=== PATIENT | male | born 1940 | race Caucasian/White ===

== ENCOUNTER 2018-11-25 10:35 | Outpatient (REF) | payer MEDICARE, BC, SELFPAY ==
[2018-11-25 22:23] LABS: ALT 26 U/L (12-78); AST 17 U/L (15-37); Albumin 4.4 g/dL (3.4-5.0); Alkaline Phosphatase 80 U/L (46-116); Anion Gap 14.7 mmol/L (3-11); BUN 13 mg/dL (7-18); CO2 26.3 mmol/L (21.0-32.0); CREATININE 1.23 mg/dL (0.70-1.30); Calcium 9.1 mg/dL (8.5-10.1); Chloride 102 mmol/L (98-107); Estimated GFR 57.06 (mL/min/1.73m2); Glucose 108 mg/dL (70-100); Potassium 3.5 mmol/L (3.5-5.1); Sodium 143 mmol/L (136-145); Total Protein 7.8 g/dL (6.4-8.2)
[2018-11-28 10:07] LABS: PSA, Screening 3.1 ng/ml (0-6.5)
== END 2018-11-25 10:55 ==
LOC: NCHCN 10:35
PROVIDERS: PCP Family Medicine; Visit Provider Family Medicine
DX: I10 Essential (primary) hypertension (principal); E78.5 Hyperlipidemia, unspecified; Z12.5 Encounter for screening for malignant neoplasm of prostate
CPT/HCPCS: 80053; 84153

== ENCOUNTER 2019-11-28 11:03 | Outpatient (REF) | payer MEDICARE, BC, SELFPAY ==
[2019-11-28 22:12] LABS: ALT 23 U/L (16-63); AST 16 U/L (15-37); Albumin 4.3 g/dL (3.4-5.0); Alkaline Phosphatase 73 U/L (46-116); Anion Gap 10.7 mmol/L (3-11); BUN 11 mg/dL (7-18); Bilirubin, Total 1.2 mg/dL (0.2-1.0); CO2 27.3 mmol/L (21.0-32.0); CREATININE 1.11 mg/dL (0.70-1.30); Calcium 8.7 mg/dL (8.5-10.1); Calculated LDL 82 mg/dL (<100); Chloride 105 mmol/L (98-107); Cholesterol 154 mg/dL (<200); Glucose 103 mg/dL (74-106); HDL Cholesterol 53 mg/dL (40-60); Potassium 3.5 mmol/L (3.5-5.1); Sodium 143 mmol/L (136-145); Total Protein 7.4 g/dL (6.4-8.2); Triglyceride 96 mg/dL (<150)
[2019-11-30 12:10] LABS: PSA, Screening 3.6 ng/mL (0.0-6.5)
== END 2019-11-28 11:23 ==
LOC: NCHCN 11:03
PROVIDERS: PCP Family Medicine; Visit Provider Family Medicine
DX: I10 Essential (primary) hypertension (principal); E78.5 Hyperlipidemia, unspecified; Z12.5 Encounter for screening for malignant neoplasm of prostate
CPT/HCPCS: 80053; 80061; 84153

== ENCOUNTER → 2020-01-05 08:49 | Outpatient (BNVA) | payer MEDICARE, BC, SELFPAY | PROVIDERS: PCP Family Medicine; Referring Provider Family Medicine; Visit Provider Surgery | DX: Z12.11 Encounter for screening for malignant neoplasm of colon (principal); Z86.010 Personal history of colon polyps ==

== ENCOUNTER 2020-03-28 07:21 | Outpatient (CLI) | payer MEDICARE, BC, SELFPAY ==
[2020-03-29 19:45] LABS: COVID-19 RT-PCR UVMMC Result Negative (Negative)
== END 2020-03-28 07:41 ==
PROVIDERS: PCP Family Medicine; Visit Provider Surgery
DX: Z11.59 Encounter for screening for other viral diseases (principal); Z01.818 Encounter for other preprocedural examination
CPT/HCPCS: U0003

== ENCOUNTER 2020-04-01 10:53 | Day surgery (SDC) | payer MEDICARE, BC, SELFPAY ==
--- NOTE | 2020-04-01 06:17 | HPE_ITS ---
Date of service: 04/01/20 Time of Service: 06:18 Assessment and Plan Assessment and plan (1) Hx of adenomatous colonic polyps: Status: Acute Assessment and plan: A\\ Mr. Summers is a healthy 79 year old male with a history of sessile serrated adenoma in 2017 who is here to discuss another colonoscopy. He is healthy and still very active. P\\ Colonoscopy under sedation Risks, benefits and complications have been reviewed. Complications include but are not limited to bleeding, pain, perforation, missed small lesion/polyp, sore throat, aspiration and adverse reaction to the medications. Questions were entertained and answered to their satisfaction and they wished to proceed. No guarantees were given or implied. (2) COVID-19 virus not detected: Status: Acute History of Present Illness Narrative: Mr. Summers is back to see me today for a follow up Colonoscopy. He was noted to have a sessile serrated adenoma in 2017. He is still active and healthy. He denies any melena, hematochezia, abdominal pain, changes in bowel habits, unintentional weight loss, family history of colon cancer. He denies chest pain or shortness of breath. HIs Colonoscopy was postponed due to COVID- 19. He has had no changes in his health since he was last seen in the office in December. Review of Systems Constitutional Constitutional: Denies fever(s), Denies headache(s), Denies poor appetite and Denies weight loss Eyes Eyes: Denies change in vision ENT Ears, Nose, Mouth, and Throat: Denies change in voice, Denies headache(s) and Denies hoarseness Cardiovascular Cardiovascular: Denies chest pain, Denies irregular heart rhythm, Denies palpitations and Denies dyspnea Respiratory Respiratory: Denies cough and Denies dyspnea Gastrointestinal Gastrointestinal: Reports as per HPI and Reports system reviewed and no additional complaints, except as documented Neurologic Neurologic: Denies headache(s) Endocrine Endocrine: Denies palpitations [facility] Medical History (Updated 04/01/20 @ 11:39 by Reshma Doan) Colon polyps (Acute) HTN (hypertension) Hyperlipidemia Intermittent asthma (Acute) Leg fracture, left (Acute) pt. reports he has a plate in his leg Low vision (Acute) Macular degeneration of right eye (Acute) pt. states it is not degeneration, but macular something Surgical History Colonoscopy - IV Sedation (11/16/16) sessile serrated adenoma Social History Smoking/Tobacco Use Status: Never Alcohol Intake: current Alcohol Intake frequency: holidays/special occasions o nly Alcohol type: wine Drug use: Never Substance use type: does not use Details: alcohol: greater than a year Do you feel safe at home: Yes Do you feel safe in your relationship?: Yes Meds Home Medications and Allergies Home Medications Medication Instructions Recorded Confirmed Type amlodipine [Norvasc] 15 mg PO HS tab-cap 11/06/16 04/01/20 History aspirin 81 mg PO DAILY tab-cap 11/06/16 04/01/20 History hydrochlorothiazide 12.5 mg PO DAILY tab-cap 11/06/16 04/01/20 History simvastatin 10 mg PO DAILY tab-cap 11/06/16 04/01/20 History potassium chloride 10 meq PO DAILY 11/16/16 04/01/20 History albuterol sulfate 90 mcg/actuation 2 puff IH Q6H PRN 12/26/19 04/01/20 History aerosol inhaler Allergies Allergy/AdvReac Type Severity Reaction Status Date / Time No Known Allergies Allergy Unverified 04/01/20 11:34 Exam Const General: cooperative, comfortable and no acute distress Orientation: alert and oriented x3 HENMT Head: normocephalic and atraumatic Resp Effort & Inspection: normal respiratory effort Auscultation: clear to auscultation bilaterally Cardio Rate: regular rate Rhythm: regular rhythm Heart Sounds: no gallops, no murmurs and no rubs
--- NOTE | 2020-04-01 06:20 | COLE_ITS ---
Date of service: 04/01/20 Time of Service: 13:30 Colonoscopy Report Date of procedure: 04/01/20 Pre-op diagnosis general: Hx of colon polyps Post-op diagnosis procedure note: other (mild diverticulosis, colorectal polyps, internal hemorrhoids) Procedure: Colonoscopy with polypectomy Surgeon: Tasha Mckinley Anesthesia proc note operative: other (General/ ASA 3/Beata Gallardo, TRAINING COORDINATOR) Estimated blood loss (mL): 3 Pathology: other (rectal polyp, cecal polyp, descending polyp, sigmoid polyp, rectal bx) Complications: None Disposition: same day Indications: Mr. Summers is a healthy 79 year old male with a history of sessile serrated adenoma in 2017 who is here to discuss another colonoscopy. He is healthy and still very active. Risks, benefits and complications have been reviewed. Complications include but are not limited to bleeding, pain, perforation, missed small lesion/polyp, sore throat, aspiration and adverse reaction to the medications. Questions were entertained and answered to their satisfaction and they wished to proceed. No guarantees were given or implied. Prep: Miralax/Dulcolax Procedure Start Time: 12:46 Procedure End Time: 13:20 Retraction Time: 25 minutes Findings: 4 polyps, internal hemorrhoids, mild diverticulosis Procedure Description: After informed consent was obtained the patient was taken to the procedure room and placed in a left decubitous position. Monitors were applied and a time out was done. The patients name, date of , procedure, allergies to medications and metal in their body was reviewed. The patient was then sedated. Once sedated and comfortable a rectal exam was done. External exam was normal. Internal exam revealed a normal sphincter tone and palpable hemorrhoids. The prostate felt smooth. The scope was then introduced and retro-flexed. Grade 2 Internal hemorrhoids were identified. The 2 larger hemorrhoids looked irritated. The scope was then advanced to the cecum without difficulty. The Ileocecal valve and appendiceal orifice were identified. The prep was adequate. The scope was then slowly retracted over 25 minutes back into the rectum. Polyps were removed with cold forceps in the cecum, descending colon, sigmoid colon and rectum. The irritated hemorrhoid was biopsied. The scope was removed and the patient was woken up and taken back to Same day surgery in stable condition. The patient tolerated the procedure well and there were no immediate complications. Follow up: The patient should follow up in 3-5 years unless they develop changes in bowel habits or other new gastrointestinal complaints.
--- NOTE | 2020-04-01 06:21 | W.PM.DSUDISC ---
Discharge Plan Disposition Patient Disposition: HOME Condition: Good Discharge Details Reason For Visit: hx of polyps Attending Provider: Tasha Mckinley Primary Care Provider: Micki Martini V Home Meds and New Rx's Prescriptions: Continued simvastatin 10 MG tablet 10 mg PO DAILY RF: 0 amlodipine [Norvasc] 10 MG tablet 15 mg PO HS RF: 0 aspirin 81 MG tablet,chewable 81 mg PO DAILY RF: 0 hydrochlorothiazide 25 MG tablet 12.5 mg PO DAILY RF: 0 albuterol sulfate [ProAir HFA] 90 mcg/actuation HFA aerosol inhaler 2 puff IH Q6H PRNRF: 0 potassium chloride 10 MEQ capsule, extended release 10 meq PO DAILY RF: 0 Discontinued bisacodyl [Dulcolax (bisacodyl)] 5 mg tablet,delayed release (DR/EC) 5 mg PO ONCE Qty: 4 RF: 0 polyethylene glycol 3350 17 gram powder in packet 255 g PO DAILY Qty: 15 RF: 0 Discharge Instructions Instructions: Diverticulosis (DC), Colorectal Polyps (GEN), Hemorrhoids (GEN) Additional Instructions: Findings: polyps mild diverticulosis Grade 2 internal hemorrhoids Follow up: 3-5 years Please call if you develop: fevers >101.5 Nausea or Vomiting Abdominal pain that is not transient DAY SURGERY UNIT POST ENDOSCOPY INSTRUCTIONS 1. Because there will be medication in your system for the next 24 hours, you may feel a little sleepy. Your coordination will be affected. Therefore: a. Do not drive or operate dangerous equipment for 24 hours. b. Do not drink alcohol beverages for 24 hours (not even beer). c. Plan to go home and rest for the day. 2. Generally there are no restrictions on your activity after a day or so has gone by, but you may feel a bit fatigued for a few days. 3 After you arrive home you may have a light meal and return to a normal diet as you can tolerate it without feeling sick to your stomach. 4. After surgery, you may feel pain or discomfort. This should be only transient, but if it persists please contact your doctor. 5. If there are any questions regarding the findings of your procedure, please feel free to contact your doctor. 6. If you are unable to contact your doctor with a problem, contact the hospital at [phone]. 7. Continue all your regular medications unless directed otherwise. I understand the above instructions and have no questions. Signature of Patient or Responsible Adult Escort Date/Time Name of Responsible Adult Escort Signature of Nurse Date/Time Activity:: Activity as Tolerated Diet:: High Fiber Diet Discharge Orders Discharge Orders: Discharge Order (Routine); Ordered 04/01/20 Ordered By: Tasha Mckinley DS: Diagnosis Discharge Diagnosis (1) Hx of adenomatous colonic polyps: Status: Acute
[2020-04-01 11:40] VITALS: BP 141/77; PULSE 75; RESP 16; TEMP 36.2; O2SAT 96
[2020-04-01] MEDS: Lactated Ringers 1,000 ML 80 ML IV (11:55)
--- NOTE | 2020-04-01 12:50 | BOWEL_PTH ---
PATIENT: Julio Summers LOC: [facility] U#:[id number] AGE/SX: 79/M ROOM: RE04/01/[address]: Tasha Mckinley MD : 1940 BED: DIS: 04/01/2020 SPEC #: [id number] RECD: 04/01/20 14:44 STATUS: SHAKEEL REQ #: [id number] BHANU: 04/01/20 12:[address]: Tasha Mckinley DEPT: Surgical Specimen RECD BY: Fabby Pickard ENTERED: 04/01/20 14:45 SP TYPE: Bowel OTHR DR: Micki Martini V Tissues: 1 - BIOPSY BOWEL 2 - BIOPSY BOWEL 3 - BIOPSY BOWEL 4 - BIOPSY BOWEL 5 - BIOPSY BOWEL Procedures: GROSS AND MICRO LEVEL 4 Comments: [id number]
[2020-04-01 13:55] VITALS: BP 140/81; PULSE 60; RESP 16; TEMP 36; O2SAT 99
== END 2020-04-01 14:35 | disposition home or self-care (01) ==
LOC: SUR 10:54
PROVIDERS: PCP Family Medicine; Visit Provider Surgery
PROC: 0DJD8ZZ Inspection of Lower Intestinal Tract, Via Natural or Artificial Opening Endoscopic (ICD-10-PCS; CPT 45378; principal; 2020-04-01 10:45)
DX: Z12.11 Encounter for screening for malignant neoplasm of colon (principal); Z86.010 Personal history of colon polyps; K62.1 Rectal polyp; K63.5 Polyp of colon; K57.30 Diverticulosis of large intestine without perforation or abscess without bleeding; K64.1 Second degree hemorrhoids
CPT/HCPCS: 45380; 88305; NC; J2001

== ENCOUNTER 2021-01-09 16:14 | Outpatient (REF) | payer MEDICARE, BC, SELFPAY ==
[2021-01-09 16:36] LABS: ALT 27 U/L (16-63); AST 17 U/L (15-37); Albumin 4.1 g/dL (3.4-5.0); Alkaline Phosphatase 79 U/L (46-116); Anion Gap 10.1 mmol/L (3-11); BUN 15 mg/dL (7-18); CO2 27.9 mmol/L (21.0-32.0); CREATININE 1.1 mg/dL (0.70-1.30); Calcium 9.1 mg/dL (8.5-10.1); Chloride 102 mmol/L (98-107); Glucose 106 mg/dL (74-106); Potassium 3.7 mmol/L (3.5-5.1); Sodium 140 mmol/L (136-145); Total Protein 7.6 g/dL (6.4-8.2)
== END 2021-01-09 16:15 | disposition home or self-care (01) ==
LOC: NCHCN 16:14
PROVIDERS: PCP Family Medicine; Visit Provider Family Medicine
DX: I10 Essential (primary) hypertension (principal)
CPT/HCPCS: 80053

== ENCOUNTER 2022-01-13 18:29 | Outpatient (REF) | payer MEDICARE, SELFPAY ==
[2022-01-13 13:00] LABS: ALT 28 U/L (16-63); AST 20 U/L (15-37); Albumin 4.2 g/dL (3.4-5.0); Alkaline Phosphatase 79 U/L (46-116); Anion Gap 10.5 mmol/L (3-11); BUN 15 mg/dL (7-18); Bilirubin, Total 1.2 mg/dL (0.2-1.0); CO2 26.5 mmol/L (21.0-32.0); CREATININE 1.2 mg/dL (0.70-1.30); Calcium 8.7 mg/dL (8.5-10.1); Chloride 104 mmol/L (98-107); Estimated GFR 58.11 (mL/min/1.73m2); Glucose 107 mg/dL (74-106); Potassium 3.4 mmol/L (3.5-5.1); Sodium 141 mmol/L (136-145); Total Protein 7.5 g/dL (6.4-8.2)
[2022-01-13 23:34] LABS: PSA, Screening 5.2 ng/mL (0.0-6.5)
== END 2022-01-13 18:30 | disposition home or self-care (01) ==
LOC: NCHCN 18:29
PROVIDERS: PCP Family Medicine; Visit Provider Family Medicine
DX: Z00.00 Encounter for general adult medical examination without abnormal findings (principal); I10 Essential (primary) hypertension; E78.5 Hyperlipidemia, unspecified; Z12.5 Encounter for screening for malignant neoplasm of prostate
CPT/HCPCS: 80053; 84153

== ENCOUNTER 2023-01-14 15:58 | Outpatient (REF) | payer MEDICARE, SELFPAY ==
[2023-01-14 16:04] LABS: ALT 22 U/L (16-63); AST 14 U/L (15-37); Albumin 4.3 g/dL (3.4-5.0); Alkaline Phosphatase 84 U/L (46-116); Anion Gap 9.5 mmol/L (3-11); BUN 11 mg/dL (7-18); Bilirubin, Total 1.5 mg/dL (0.2-1.0); CO2 28.5 mmol/L (21.0-32.0); CREATININE 1.3 mg/dL (0.70-1.30); Calcium 9.3 mg/dL (8.5-10.1); Calculated LDL 75 mg/dL (<100); Chloride 103 mmol/L (98-107); Cholesterol 168 mg/dL (<200); Estimated GFR 54.85 (mL/min/1.73m2); Glucose 108 mg/dL (74-106); HDL Cholesterol 68 mg/dL (40-60); Potassium 3.5 mmol/L (3.5-5.1); Sodium 141 mmol/L (136-145); Total Protein 7.9 g/dL (6.4-8.2); Triglyceride 125 mg/dL (<150)
[2023-01-15 20:38] LABS: PSA, Screening 6.5 ng/mL (<=6.5)
== END 2023-01-14 15:59 | disposition home or self-care (01) ==
LOC: NCHCN 15:58
PROVIDERS: PCP Family Medicine; Visit Provider Family Medicine
DX: I10 Essential (primary) hypertension; E78.5 Hyperlipidemia, unspecified; Z12.5 Encounter for screening for malignant neoplasm of prostate
CPT/HCPCS: 80053; 80061; 84153

== ENCOUNTER 2023-06-21 13:24 | Outpatient (REF) | payer MEDICARE, SELFPAY | END 2023-06-21 13:25 | disposition home or self-care (01) | LOC: NCHCN 13:24 | PROVIDERS: PCP Family Medicine; Visit Provider Family Medicine | DX: N39.0 Urinary tract infection, site not specified (principal); B96.20 Unspecified Escherichia coli [E. coli] as the cause of diseases classified elsewhere | CPT/HCPCS: 87077; 87086; 87186 ==

== ENCOUNTER 2023-06-28 16:34 | Outpatient (REF) | payer MEDICARE, SELFPAY ==
[2023-06-28 16:45] LABS: Anion Gap 11.3 mmol/L (3-11); BUN 12 mg/dL (7-18); CO2 24.7 mmol/L (21.0-32.0); CREATININE 1.1 mg/dL (0.70-1.30); Calcium 9.1 mg/dL (8.5-10.1); Chloride 99 mmol/L (98-107); Estimated GFR 67.02 (mL/min/1.73m2); Glucose 118 mg/dL (74-106); Potassium 3.6 mmol/L (3.5-5.1); Sodium 135 mmol/L (136-145)
== END 2023-06-28 16:35 | disposition home or self-care (01) ==
LOC: NCHCN 16:34
PROVIDERS: PCP Family Medicine; Visit Provider Family Medicine
DX: R31.9 Hematuria, unspecified (principal); N39.0 Urinary tract infection, site not specified; R35.0 Frequency of micturition; E87.6 Hypokalemia
CPT/HCPCS: 80048; 87086

== ENCOUNTER → 2023-07-07 09:05 | Outpatient (BNVA) | payer MEDICARE, SELFPAY | PROVIDERS: PCP Family Medicine; Referring Provider Family Medicine; Visit Provider Surgery | DX: K62.89 Other specified diseases of anus and rectum (principal) | CPT/HCPCS: 99203 ==

== ENCOUNTER 2023-07-12 13:46 | Outpatient (REF) | payer MEDICARE, SELFPAY ==
[2023-07-12 16:08] LABS: Anion Gap 12.3 mmol/L (3-11); BUN 11 mg/dL (7-18); CO2 24.7 mmol/L (21.0-32.0); CREATININE 1.2 mg/dL (0.70-1.30); Calcium 8.8 mg/dL (8.5-10.1); Chloride 103 mmol/L (98-107); Estimated GFR 60.38 (mL/min/1.73m2); Glucose 105 mg/dL (74-106); Potassium 3.4 mmol/L (3.5-5.1); Sodium 140 mmol/L (136-145)
[2023-07-12 23:03] LABS: PSA, Screening 11.4 ng/mL (<=6.5)
== END 2023-07-12 13:47 | disposition home or self-care (01) ==
LOC: NCHCN 13:46
PROVIDERS: PCP Family Medicine; Visit Provider Nurse Practitioner Family
DX: I10 Essential (primary) hypertension (principal); R97.20 Elevated prostate specific antigen [PSA]; Z12.5 Encounter for screening for malignant neoplasm of prostate
CPT/HCPCS: 80048; 84153

== ENCOUNTER 2023-07-22 06:50 | Day surgery (SDC) | payer MEDICARE, SELFPAY ==
--- NOTE | 2023-07-21 19:01 | PDOC.DSDIS_ITS ---
Date of service: 07/22/23 Time of Service: 08:41 Discharge Plan Disposition Patient Disposition: Home Condition: Good Discharge Details Reason For Visit: Rectal mass Attending Provider: Miguel Gutiérrez Primary Care Provider: Micki Martini V Home Meds and New Rx's Prescriptions: New tramadol 50 mg tablet 50 mg PO Q8H PRNQty: 15 0RF Rx Instructions: Take 1 tablet by mouth up to every 8 hours if needed for severe pain. Continued amlodipine [Norvasc] 10 MG tablet 15 mg PO HS hydrochlorothiazide 25 MG tablet 12.5 mg PO DAILY albuterol sulfate [ProAir HFA] 90 mcg/actuation HFA aerosol inhaler 2 puff IH Q6H PRN simvastatin 10 mg tablet 20 mg PO DAILY potassium chloride 10 MEQ capsule, extended release 10 meq PO DAILY Discontinued polyethylene glycol 3350 17 gram/dose powder 238 g PO ONCE Qty: 238 0RF Rx Instructions: take per colonoscopy instructions bisacodyl [Dulcolax (bisacodyl)] 5 mg tablet,delayed release (DR/EC) 5 mg PO ONCE Qty: 4 0RF Rx Instructions: take per colonoscopy instructions Discharge Instructions Instructions: Rubber Band Ligation (DC), Rubber Band Ligation (GEN) Additional Instructions: Julio, your colonoscopy today went just fine. He did have 2 large internal hemorrhoids. The tissue overlying them was a little bit irritated. And because of your previous biopsies, I felt the safest thing to do is repeat biopsies today. This went very smoothly. I also placed bands on the 2 large hemorrhoids. You probably remember, in the office, we talked a little bit about the nature of hemorrhoids. Essentially, they are large veins. The bands that I put around will cause the blood flow to stop moving into the hemorrhoids. This will ultimately cause them to form blood clots and to fall off. Although hemorrhoid banding is generally regarded as relatively comfortable, I did take the liberty of prescribing a pain medication in the case that you need it. Tylenol and ibuprofen can also be very helpful for discomfort. Topical treatments with things like preparation might also be useful in the days to come. You may also find that performing sitz bath's will help with any discom fort you have around your anus. Sitz bath's can be purchased at pharmacies, or performed at home using a simple shallow bathtub. I generally recommend the patient's had a few tablespoons of Epsom salts, or baking soda to the warm water. Then, you just soak your backside in the liquid. I usually tell patients to do this at least twice a day, and may be after each bowel movement if needed for discomfort. I have also made a follow-up appointment in my office on August 04 at 9 AM. If you need anything at all in the meantime, please do not hesitate to call. 1. If tolerated, consume a soft, low fiber diet for 1-2 days. 2. Do not drive, drink alcohol, operate machinery, make critical decisions, or do activities that require coordination or balance for 24 hours. 3. Because air was put into your colon during the procedure, expelling air from your rectum (passing gas or farting) is normal. 4. You may not have a bowel movement for 1-3 days because of the colonoscopy prep. This is normal. 5. Go directly to the emergency room if you notice any of the following: Develop chills (warm to touch), or if you have a thermometer and your temperature is above 101 Difficulty breathing or difficultly swallowing Persistent vomiting Severe abdominal pain, other than gas cramps Severe chest pain Black, tarry stools Any bleeding ? exceeding one tablespoon 6. Call your physician if the site where your intravenous was started becomes red, swollen, painful, and warm to touch. 7. Your physician has reviewed your pre-procedure medications. Please continue to take those medications as previously ordered. You will be given specific information/education regarding any changes to your medications before leaving. Stand Alone Forms: Anesthesia Discharge Inst., Kacie Kumar (DSU) Activity:: Activity as Tolerated Diet:: As Tolerated Discharge Orders Discharge Orders: Discharge Order (Routine); Ordered 07/21/23 Ordered By: Miguel Gutiérrez DS: Diagnosis Discharge Diagnosis (1) Rectal mass: Status: Acute
--- NOTE | 2023-07-21 19:03 | COLE_ITS ---
Date of service: 07/22/23 Time of Service: 08:54 Colonoscopy Report Date of procedure: 07/22/23 Pre-op diagnosis general: Rectal mass Post-op diagnosis procedure note: other (Internal hemorrhoids) Procedure: Colonoscopy with hemorrhoid banding Surgeon: Miguel Gutiérrez Anesthesia Type: General:No Airway Estimated blood loss (mL): 3 Pathology: other (Biopsies of hemorrhoid) Complications: None Disposition: same day Indications: Julio is an 82 year old man who experiences intermittent rectal prolapse. Prep: Miralax/Dulcolax Procedure Start Time: 08:19 Procedure End Time: 08:34 Retraction Time: 11 Findings: Grade 3 internal hemorrhoids Procedure Description: After the induction of monitored anesthetic care, and with the patient in left lateral decubitus position, I began by performing an external anorectal exam.? Perineum and skin were normal, as was the anal verge.? There was no evidence of external hemorrhoids.? Next, I performed a digital rectal exam.? This felt normal.? Next, I advanced a colonoscope into the rectal vault.? I performed retroflexion.? There were grade 3 internal hemorrhoids. The mucosa overlying the largest was a little bit friable. I did perform cold forceps biopsies here..? Using insufflation, I then advanced the colonoscope beyond the rectal folds and into the sigmoid colon before advancing towards the cecum.? The quality of the prep was excellent.? The scope was noted to be in the cecum by identification of the ileocecal valve and appendiceal orifice.? I then began withdrawing the colonoscope using repeated irrigation as necessary for full evaluation of the colonic mucosa. ?Once the scope was withdrawn to the level of the rectum, great care was taken to examine portions of the rectal folds.? I did not see any signs of tumors or polyps anywhere within the large intestine. I wi thdrew the colonoscope, and next using a fiberoptic lit anoscope, I carefully examined the anal column and distal rectum. There were 2 large hemorrhoids. One was in the left lateral column. The other was in the right posterior column. I performed rubber band ligation of these hemorrhoids.
[2023-07-22 07:12] VITALS: BP 131/71; PULSE 73; RESP 16; TEMP 36.5; O2SAT 97
[2023-07-22] MEDS: Lactated Ringers 1,000 ML 80 ML IV (07:31)
--- NOTE | 2023-07-22 07:58 | W.ANESPRE ---
General Info Date of Service Date Performed: 07/22/23 Height: 5 ft 5 in Weight: 65.9 kg Body Mass Index (BMI): 24.1 Surgical Procedure: Operation Date: 07/22/23 08:20 Proposed Procedure Side Surgeon scott Gutiérrez MD Meds Allergies and Home Medications Allergies Allergy/AdvReac Type Severity Reaction Status Date / Time No Known Allergies Allergy Verified 07/22/23 07:11 Home Medication Medication Instructions Recorded amlodipine 10 mg tablet (Norvasc) 15 mg PO HS 11/06/16 hydrochlorothiazide 25 mg tablet 12.5 mg PO DAILY 11/06/16 potassium chloride 10 mEq 10 meq PO DAILY 11/16/16 capsule,extended release albuterol sulfate 90 mcg/actuation 2 puff inhalation Q6H PRN 12/26/19 aerosol inhaler (ProAir HFA) simvastatin 10 mg tablet 20 mg PO DAILY 06/29/23 Current Visit Medications: Current Medications Generic Name Dose Route Start Last Admin Trade Name Freq PRN Reason Stop Dose Admin Hyoscyamine Sulfate 0.125 mg 07/21/23 19:04 Hyoscyamine 0.125 Mg Sl/Oral/Chew SL 08/20/23 19:03 DIRECTED PRN Ringer's Solution 1,000 mls @ 80 mls/hr 07/22/23 06:00 07/22/23 07:31 IV 08/20/23 23:59 80 mls/hr INFUSION JAUN Administration IV Miscellaneous Supplies 1 each 07/22/23 06:00 Iv Access IV 08/20/23 23:59 DIRECTED JAUN Ondansetron HCl 4 mg 07/21/23 19:04 Ondansetron 4 Mg/2 Ml Vial IVP 08/20/23 19:03 Q4H PRN PRN Nausea / Vomiting Sodium Chloride 0 ml 07/22/23 06:00 Normal Saline Flush 10 Ml Syr IV 08/20/23 23:59 PRN PRN Sodium Chloride 0 ml 07/22/23 06:00 Normal Saline 10 Ml Vial IJ 08/20/23 23:59 DIRECTED PRN Sterile Water 0 ml 07/22/23 06:00 Water,Injection,Sterile 10 Ml Vial IJ 08/20/23 23:59 DIRECTED PRN PFSH Active Problems Active Problems: Problem Status Onset Code Hx of adenomatous colonic polyps Z86.010 COVID-19 virus not detected Z03.818 Rectal mass K62.89 Elevated PSA R97.20 Medical History Medical History Colon polyp, hyperplastic 04/01/20 Dr. Mack Mckinley, multiple hyperplastic, repeat 5 years Grief reaction Hematuria HTN (hypertension) Hyperlipidemia Hypokalemia Inguinal hernia, bilateral Denies having surgery. Intermittent asthma Leg fracture, left pt. reports he has a plate in his leg Low vision Macular degeneration of right eye pt. states it is not degeneration, but macular something. pt. states Myopia Other dyspnea and respiratory abnormality Sessile colonic polyp (11/16/16) Urinary frequency UTI (urinary tract infection) Surgical History Surgical History Colonoscopy - IV Sedation (11/16/16) sessile serrated adenoma Tobacco Smoking/Tobacco Use Status: Never Alcohol Alcohol Intake: current Alcohol intake frequency: holidays/special occasions only Alcohol type: wine Substance Use Substance use: Never Substance use type: does not use Vital Signs and Lab Results Vital Signs Most Recent Vital Signs in EMR: Most Recent Vital Signs Temp Pulse Resp BP Pulse Ox 36.5 C 73 16 131/71 97 07/22/23 07:12 07/22/23 07:12 07/22/23 07:12 07/22/23 07:12 07/22/23 07:12 Lab Results Blood Type / Crossmatch: No Data to Display Complete Blood Count: No Data to Display Complete Metabolic Panel: Sodium 140 mmol/L (136-145) 07/12/23 09:40 Potassium 3.4 mmol/L (3.5-5.1) L 07/12/23 09:40 Chloride 103 mmol/L (98-107) 07/12/23 09:40 Carbon Dioxide 24.7 mmol/L (21.0-32.0) 07/12/23 09:40 BUN 11 mg/dL (7-18) 07/12/23 09:40 Creatinine 1.2 mg/dL (0.70-1.30) 07/12/23 09:40 Est GFR (CKD-EPI 2020) 60.38 (mL/min/1.73m2) 07/12/23 09:40 Calcium 8.8 mg/dL (8.5-10.1) 07/12/23 09:40 Glucose 105 mg/dL (74-106) 07/12/23 09:40 Liver Function Panel: No Data to Display Coagulation Panel: No Data to Display Cardiac Panel: No Data to Display Arterial Blood Gas: No Data to Display Venous Blood Gas: No Data to Display Pancreas Panel: No Data to Display Thyroid Panel: No Data to Display Infectious Disease: No Data to Display Blood Cultures: No Data to Display Toxicology Panel: No Data to Display Anesthesia Assessment and Plan Anesthesia History Personal History: No History of Anesthesia Complications Family History: No Family History of Anesthesia Complications Exercise Tolerance Exercise Tolerance: Metabolic Equivalents>4 Pertinent Negatives Pertinent Negatives: No Symptoms of GERD, No Major Cardiovascular Symptoms or Complaints and No Major Pulmonary Symptoms or Complaints Cardiac & Pulmonary Exam Cardiac Exam: Normal S1/S2 Heart Sounds Pulmonary Exam: Clear Bilateral Breath Sounds Implantable Cardiac Device Does patient have a Pacemaker or an ICD?: No Airway Exam Known Difficult Airway: No Mallampati Class: 1 Mouth Opening: Normal (> 3cm) Thyromental Distance: Greater than 3 cm Neck Range of Motion: Full ROM Neck Circumference: Normal Teeth Condition: Normal Dentition ASA Classification ASA Score: ASA 2 Emergency Case?: No NPO Status NPO Status: NPO Clears >2 hours, Solids >8 hours Anesthesia Plan Resuscitation Status: Full Code Anesthesia Technique: General Anesthesia Airway Planned: Natural Airway Monitors Used: Standard Monitors
[2023-07-22 08:01] VITALS: BMI 24.1
--- NOTE | 2023-07-22 08:21 | HEM_PTH ---
PATIENT: Julio Summers LOC: [facility] U#:[id number] AGE/SX: 82/M ROOM: RE07/22/[address]: Miguel Gutiérrez MD : 1940 BED: DIS: 07/22/2023 SPEC #: [id number] RECD: 07/22/23 12:28 STATUS: SHAKEEL REQ #: [id number] BHANU: 07/22/23 08:[address]: Miguel Gutiérrez DEPT: Surgical Specimen RECD BY: Fabby Pickard ENTERED: 07/22/23 12:29 SP TYPE: Hem OTHR DR: Micki Martini V Tissues: 1 - HEMORRHOIDS Procedures: GROSS AND MICRO LEVEL 3 Comments: [id number]
[2023-07-22 08:40] VITALS: BP 99/68; PULSE 60; RESP 16; TEMP 36.4; O2SAT 96
[2023-07-22 09:07] VITALS: BP 133/72; PULSE 61; RESP 18; TEMP 36.5; O2SAT 98
--- NOTE | 2023-07-22 09:49 | W.ANESPOSTOP ---
Postoperative Evaluation Date, Time and Location Date Performed: 07/22/23 Time Performed: 09:49 Patient Location: Day Surgery Unit Vital Signs Most Recent Imported Vital Signs: Most Recent Vital Signs Temp Pulse Resp BP Pulse Ox 36.5 C 61 18 133/72 98 07/22/23 09:07 07/22/23 09:07 07/22/23 09:07 07/22/23 09:07 07/22/23 09:07 Pain Score Most Recent Pain Score: Most Recent Pain Score Pain Level 2 07/22/23 0920 Assessment Mental Status: Awake (Alert & Oriented to Patient Baseline) Airway and Respiratory Function: Patent airway with normal (patient baseline) respiratory exam Cardiovascular Function: Hemodynamically Stable Hydration Status: Adequately Hydrated Nausea & Vomiting: No Nausea or Vomiting Pain: Pain is tolerable per patient Peripheral Nerve Block: Patient did not receive a nerve block Postoperative Comments:: Tolerable very slight abdominal cramping.
== END 2023-07-22 09:39 | disposition home or self-care (01) ==
PROVIDERS: PCP Family Medicine; Visit Provider Surgery
PROC: 0DJD8ZZ Inspection of Lower Intestinal Tract, Via Natural or Artificial Opening Endoscopic (ICD-10-PCS; CPT 45378; principal; 2023-07-22 08:15)
DX: K62.89 Other specified diseases of anus and rectum (principal); K64.8 Other hemorrhoids; Z86.010 Personal history of colon polyps
CPT/HCPCS: 45380; 46221; 88304

== ENCOUNTER → 2023-07-27 12:39 | Outpatient (BNVA) | payer MEDICARE, SELFPAY | PROVIDERS: PCP Family Medicine; Referring Provider Family Medicine; Visit Provider Nurse Practitioner Gerontology | DX: R97.20 Elevated prostate specific antigen [PSA] (principal); I10 Essential (primary) hypertension | CPT/HCPCS: 51798; 99213 ==

== ENCOUNTER → 2023-08-18 11:20 | Outpatient (BNVA) | payer MEDICARE, SELFPAY | PROVIDERS: PCP Family Medicine; Referring Provider Family Medicine; Visit Provider Surgery | DX: Z48.815 Encounter for surgical aftercare following surgery on the digestive system (principal); K64.2 Third degree hemorrhoids | CPT/HCPCS: 99213 ==

== ENCOUNTER 2023-09-13 03:06 | Outpatient (CLI) | payer MEDICARE, SELFPAY ==
[2023-09-13 18:58] LABS: PSA, Diagnostic 8.1 ng/mL (<=6.5)
== END 2023-09-13 03:07 | disposition home or self-care (01) ==
LOC: LBO 03:06
PROVIDERS: PCP Family Medicine; Visit Provider Nurse Practitioner Gerontology
DX: R97.20 Elevated prostate specific antigen [PSA] (principal)
CPT/HCPCS: 36415; 84153

== ENCOUNTER → 2023-09-20 09:46 | Outpatient (BNVA) | payer MEDICARE, SELFPAY | PROVIDERS: PCP Family Medicine; Referring Provider Family Medicine; Visit Provider Nurse Practitioner Gerontology | DX: N39.0 Urinary tract infection, site not specified (principal); R97.20 Elevated prostate specific antigen [PSA] | CPT/HCPCS: 99213 ==

== ENCOUNTER 2024-02-10 18:45 | Outpatient (REF) | payer MEDICARE, SELFPAY ==
--- NOTE | 2024-02-10 13:50 | SKI_PTH ---
PATIENT: Julio Summers LOC: [facility] U#:[id number] AGE/SX: 83/M ROOM: RE02/10/[address]: Micki Martini V : 1940 BED: DIS: 02/10/2024 SPEC #: [id number] RECD: 02/11/24 10:50 STATUS: SHAKEEL LANE #: [id number] BHANU: 02/10/24 13:[address]: Micki Martini V DEPT: Surgical Specimen RECD BY: Fabby Pickard Tissues: 1 - SKIN BIOPSY(SHAVE/PUNCH) Procedures: SKIN LEVEL 4 Comments: [id number]
== END 2024-02-10 18:46 | disposition home or self-care (01) ==
LOC: NCHCN 18:45
PROVIDERS: PCP Family Medicine; Visit Provider Family Medicine
DX: B07.8 Other viral warts (principal)
CPT/HCPCS: 88305

== ENCOUNTER → 2024-03-21 09:53 | Outpatient (BNVA) | payer MEDICARE, SELFPAY | PROVIDERS: PCP Family Medicine; Referring Provider Family Medicine; Visit Provider Nurse Practitioner Gerontology | DX: N40.1 Benign prostatic hyperplasia with lower urinary tract symptoms (principal); R97.20 Elevated prostate specific antigen [PSA] | CPT/HCPCS: 51798; 99213 ==

== ENCOUNTER 2024-03-21 10:53 | Outpatient (CLI) | payer MEDICARE, SELFPAY ==
[2024-03-21 11:20] LABS: ALT 25 U/L (16-63); AST 16 U/L (15-37); Albumin 4.2 g/dL (3.4-5.0); Alkaline Phosphatase 74 U/L (46-116); Anion Gap 10.3 mmol/L (3-11); BUN 14 mg/dL (7-18); Bilirubin, Total 1.4 mg/dL (0.2-1.0); CO2 26.7 mmol/L (21.0-32.0); CREATININE 1.2 mg/dL (0.70-1.30); Calcium 8.9 mg/dL (8.5-10.1); Chloride 103 mmol/L (98-107); Glucose 108 mg/dL (74-106); Potassium 3.6 mmol/L (3.5-5.1); Sodium 140 mmol/L (136-145); Total Protein 7.8 g/dL (6.4-8.2)
[2024-03-21 18:24] LABS: PSA, Diagnostic 6.2 ng/mL (<=6.5)
== END 2024-03-21 10:54 | disposition home or self-care (01) ==
LOC: LBO 10:53
PROVIDERS: Nurse Practitioner Gerontology; PCP Family Medicine; Visit Provider Family Medicine
DX: R97.20 Elevated prostate specific antigen [PSA] (principal)
CPT/HCPCS: 36415; 80053; 84153

== ENCOUNTER 2024-09-25 15:33 | Outpatient (CLI) | payer MEDICARE, SELFPAY ==
[2024-09-25 22:03] LABS: PSA, Diagnostic 7.5 ng/mL (<=6.5)
== END 2024-09-25 15:34 | disposition home or self-care (01) ==
LOC: LBO 15:35
PROVIDERS: PCP Family Medicine; Visit Provider Nurse Practitioner Gerontology
DX: R97.20 Elevated prostate specific antigen [PSA] (principal)
CPT/HCPCS: 36415; 84153

== ENCOUNTER → 2024-10-04 10:19 | Outpatient (BNVA) | payer MEDICARE, SELFPAY | PROVIDERS: PCP Family Medicine; Visit Provider Nurse Practitioner Gerontology | DX: R39.89 Other symptoms and signs involving the genitourinary system (principal); R97.20 Elevated prostate specific antigen [PSA] | CPT/HCPCS: 99213 ==

== ENCOUNTER 2025-03-28 02:07 | Outpatient (CLI) | payer MEDICARE, SELFPAY ==
[2025-03-28 18:45] LABS: PSA, Diagnostic 7.4 ng/mL (<=6.5)
== END 2025-03-28 02:08 | disposition home or self-care (01) ==
LOC: LBO 02:07
PROVIDERS: PCP Family Medicine; Visit Provider Nurse Practitioner Gerontology
DX: R97.20 Elevated prostate specific antigen [PSA] (principal)
CPT/HCPCS: 36415; 84153

== ENCOUNTER → 2025-04-04 10:44 | Outpatient (BNVA) | payer MEDICARE, SELFPAY | PROVIDERS: PCP Family Medicine; Referring Provider Family Medicine; Visit Provider Nurse Practitioner Gerontology | DX: R97.20 Elevated prostate specific antigen [PSA] (principal); Z80.42 Family history of malignant neoplasm of prostate; Z87.440 Personal history of urinary (tract) infections | CPT/HCPCS: 99213; 81003 ==

== ENCOUNTER 2025-04-27 15:05 | Outpatient (REF) | payer MEDICARE, SELFPAY ==
[2025-04-27 15:45] LABS: ALT 37 U/L (16-63); AST 22 U/L (15-37); Albumin 3.8 g/dL (3.4-5.0); Alkaline Phosphatase 69 U/L (46-116); Anion Gap 9.1 mmol/L (3-11); BUN 11 mg/dL (7-18); Bilirubin, Total 0.9 mg/dL (0.2-1.0); CO2 27.9 mmol/L (21.0-32.0); Calcium 8.9 mg/dL (8.5-10.1); Chloride 103 mmol/L (98-107); Estimated GFR 74.21 (mL/min/1.73m2); Glucose 99 mg/dL (74-106); Potassium 4.2 mmol/L (3.5-5.1); Sodium 140 mmol/L (136-145); Total Protein 7.1 g/dL (6.4-8.2)
[2025-04-27 15:54] LABS: Hemoglobin A1C 5.6 % (<5.7)
== END 2025-04-27 15:06 | disposition home or self-care (01) ==
LOC: NCHCN 15:05
PROVIDERS: PCP Family Medicine; Visit Provider Family Medicine
DX: Z13.1 Encounter for screening for diabetes mellitus (principal)
CPT/HCPCS: 80053; 83036

== ENCOUNTER → 2025-05-10 12:51 | Outpatient (BNVA) | payer MEDICARE, SELFPAY | PROVIDERS: PCP Family Medicine; Referring Provider Family Medicine; Visit Provider Nurse Practitioner Gerontology | DX: Z80.42 Family history of malignant neoplasm of prostate (principal); R97.20 Elevated prostate specific antigen [PSA] | CPT/HCPCS: 99214 ==

== ENCOUNTER → 2025-05-21 10:45 | Outpatient (BNVA) | payer MEDICARE, SELFPAY | PROVIDERS: PCP Family Medicine; Referring Provider Family Medicine; Visit Provider Urology | DX: C61 Malignant neoplasm of prostate (principal) | CPT/HCPCS: 55700; 76872 ==

== ENCOUNTER 2025-05-21 11:38 | Outpatient (REF) | payer MEDICARE, SELFPAY ==
--- NOTE | 2025-05-21 11:20 | PROST_PTH ---
PATIENT: Julio Summers LOC: [facility] U#:[id number] AGE/SX: 84/M ROOM: RE05/21/[address]: Irwin Ferreira MD : 1940 BED: DIS: 05/21/2025 SPEC #: [id number] RECD: 05/21/25 13:07 STATUS: SHAKEEL REOskar #: [id number] BHANU: 05/21/25 11:[address]: Irwin Ferreira DEPT: Surgical Specimen RECD BY: Fabby Pickard ENTERED: 05/21/25 13:08 SP TYPE: PROST OTHR DR: Micki Martini V Tissues: 1 - PROSTATE NEEDLE BIOPSY 2 - PROSTATE NEEDLE BIOPSY 3 - PROSTATE NEEDLE BIOPSY 4 - PROSTATE NEEDLE BIOPSY 5 - PROSTATE NEEDLE BIOPSY 6 - PROSTATE NEEDLE BIOPSY 7 - PROSTATE NEEDLE BIOPSY 8 - PROSTATE NEEDLE BIOPSY 9 - PROSTATE NEEDLE BIOPSY 10 - PROSTATE NEEDLE BIOPSY 11 - PROSTATE NEEDLE BIOPSY 12 - PROSTATE NEEDLE BIOPSY Procedures: GROSS AND MICRO LEVEL 4 IMMUNOPEROXIDASE STAIN Comments: [id number]
== END 2025-05-21 11:39 | disposition home or self-care (01) ==
LOC: LBN 11:38
PROVIDERS: PCP Family Medicine; Visit Provider Urology
DX: C61 Malignant neoplasm of prostate (principal); R97.20 Elevated prostate specific antigen [PSA]
CPT/HCPCS: 88305; 88361

== ENCOUNTER → 2025-06-04 10:55 | Outpatient (BNVA) | payer MEDICARE, SELFPAY | PROVIDERS: PCP Family Medicine; Referring Provider Family Medicine; Visit Provider Urology | DX: C61 Malignant neoplasm of prostate (principal) | CPT/HCPCS: 99214 ==

== ENCOUNTER → 2025-07-06 10:46 | Outpatient (BNVA) | payer MEDICARE, SELFPAY | PROVIDERS: PCP Family Medicine; Referring Provider Family Medicine; Visit Provider Urology | DX: C61 Malignant neoplasm of prostate (principal) | CPT/HCPCS: 99214 ==

== ENCOUNTER 2025-08-08 13:02 | Outpatient (REF) | payer MEDICARE, SELFPAY ==
[2025-08-08 16:20] LABS: Abs Immature Grans 0.02 10^3/uL (0.0-0.06); HCT 44.7 % (40.0-50.0); HGB 15.8 g/dL (13.5-17.5); Immature Grans % 0.3 %; MCH 30.9 pg (27.0-33.0); MCHC 35.3 % (32.0-36.0); MCV 88 fL (80-95); MPV 10.3 fL (8.0-11.0); Platelet Count 218 10^3/uL (130-400); RBC 5.11 10^6/uL (4.36-5.78); RDW 12.3 % (11.8-14.1); RDW-SD 39.7 fL; WBC 6.10 10^3/uL (4.4-10.8)
[2025-08-08 16:41] LABS: ALT 28 U/L (16-63); AST 24 U/L (15-37); Albumin 4.2 g/dL (3.4-5.0); Alkaline Phosphatase 73 U/L (46-116); Anion Gap 11.2 mmol/L (3-11); BUN 10 mg/dL (7-18); Bilirubin, Total 1.6 mg/dL (0.2-1.0); CO2 24.8 mmol/L (21.0-32.0); Calcium 8.8 mg/dL (8.5-10.1); Chloride 103 mmol/L (98-107); Estimated GFR 74.21 (mL/min/1.73m2); Glucose 91 mg/dL (74-106); Potassium 4.3 mmol/L (3.5-5.1); Sodium 139 mmol/L (136-145); Total Protein 7.3 g/dL (6.4-8.2)
== END 2025-08-08 13:03 | disposition home or self-care (01) ==
LOC: LBN 13:02
PROVIDERS: PCP Family Medicine; Visit Provider Radiology Radiation Oncology
DX: C61 Malignant neoplasm of prostate (principal)
CPT/HCPCS: 80053; 84153; 84403; 85025

== ENCOUNTER → 2025-09-18 12:59 | Outpatient (BNVA) | payer MEDICARE, SELFPAY | PROVIDERS: PCP Family Medicine; Referring Provider Family Medicine; Visit Provider Urology | DX: C61 Malignant neoplasm of prostate (principal); N41.9 Inflammatory disease of prostate, unspecified; R35.0 Frequency of micturition | CPT/HCPCS: 81002; 99213 ==